=== PATIENT | male | born 1975 | race African-American/Black ===

== ENCOUNTER 2017-06-14 00:28 | Emergency (ER) | payer BC, OTHER ==
[~2017-06-14] VITALS: Ht 170.2 cm; Wt 81.7 kg
[~2017-06-14 00:28] MED LIST: PREDNISONE 20 M20 MG PO
[2017-06-14] MEDS ORDERED: NAPROSYN500 MG PO (01:59)
[2017-06-14 02:16] VITALS: BP 131/89
== END 2017-06-14 02:17 | disposition home or self-care (01) ==
LOC: ER 00:28
DX: S63.612A Unspecified sprain of right middle finger, initial encounter (principal); F17.210 Nicotine dependence, cigarettes, uncomplicated; W23.0XXA Caught, crushed, jammed, or pinched between moving objects, initial encounter; Y93.89 Activity, other specified; Y92.89 Other specified places as the place of occurrence of the external cause; Y99.8 Other external cause status

== ENCOUNTER 2018-03-06 17:40 | Emergency (ER) | payer BC, OTHER ==
[~2018-03-06] VITALS: Ht 170.2 cm; Wt 90.7 kg
[~2018-03-06 17:40] MED LIST changes: +NAPROSYN500 MG PO
[2018-03-06 17:49] VITALS: BP 122/73
[2018-03-06] MEDS ORDERED: MOBIC7.5 MG PO (17:58)
== END 2018-03-06 18:10 | disposition home or self-care (01) ==
LOC: ER 17:40
DX: M70.22 Olecranon bursitis, left elbow (principal); Y93.89 Activity, other specified

== ENCOUNTER 2018-10-25 10:01 | Emergency (ER) | payer BC, OTHER ==
[~2018-10-25] VITALS: Ht 170.2 cm; Wt 81.7 kg
[~2018-10-25 10:01] MED LIST changes: +MOBIC7.5 MG PO
[2018-10-25 10:32] LABS: ABSOLUTE NEUTROPHILS 11.8 thou/uL (1.4-8.2); BASOPHILS 0.5 % (0.0-2.0); EOSINOPHILS 0.5 % (0.0-3.0); HEMATOCRIT 39.4 % (42.0-52.0); HEMOGLOBIN 13.2 gm/dL (14.0-18.0); LYMPHOCYTES 5.7 % (24.0-44.0); MCH 29.9 pg (26.0-34.0); MCHC 33.4 g/dL (28.0-37.0); MCV 89.6 fL (80.0-100.0); MONOCYTES 4.8 % (1.0-8.0); PLATELET COUNT 206 thou/uL (150-400); POLYS 88.5 % (36.0-66.0); RBC 4.39 mil/uL (4.50-6.00); RDW 12.1 % (10.5-14.5); WBC 13.4 thou/uL (4.0-11.0)
[2018-10-25 10:38] LABS: POTASSIUM 3.7 mmol/L (3.5-5.1)
[2018-10-25 10:44] LABS: ALBUMIN 4.3 g/dL (3.4-5.0); TOTAL BILIRUBIN 1.1 mg/dL (<0.1-1.0); TOTAL PROTEIN 8.3 g/dL (6.4-8.2)
[2018-10-25] MEDS ORDERED: PHENERGAN 25 MG25 M1 PO (12:00)
[2018-10-25 12:18] VITALS: BP 131/68
== END 2018-10-25 12:19 | disposition home or self-care (01) ==
LOC: ER 10:01
PROVIDERS: Physician Assistant
DX: R11.2 Nausea with vomiting, unspecified (principal); R19.7 Diarrhea, unspecified; K42.9 Umbilical hernia without obstruction or gangrene; R10.13 Epigastric pain; F17.210 Nicotine dependence, cigarettes, uncomplicated; Z88.6 Allergy status to analgesic agent

== ENCOUNTER 2020-06-19 23:11 | Emergency (ER) | payer BC, OTHER ==
[~2020-06-19] VITALS: Ht 170.2 cm; Wt 81.7 kg
[~2020-06-19 23:11] MED LIST changes: +PHENERGAN 25 MG25 M1 PO
[2020-06-20 01:08] VITALS: BP 161/92
== END 2020-06-20 01:08 | disposition home or self-care (01) ==
LOC: ER 23:11
DX: S05.02XA Injury of conjunctiva and corneal abrasion without foreign body, left eye, initial encounter (principal); F17.210 Nicotine dependence, cigarettes, uncomplicated; Z88.6 Allergy status to analgesic agent; W22.8XXA Striking against or struck by other objects, initial encounter; Y93.89 Activity, other specified; Y92.89 Other specified places as the place of occurrence of the external cause; Y99.8 Other external cause status

== ENCOUNTER 2021-07-06 07:02 | Emergency (ER) | payer OTHER ==
[~2021-07-06] VITALS: Ht 170.2 cm; Wt 81.7 kg
[2021-07-06 07:22] LABS: URINE BLOOD TRACE (Negative); URINE CLARITY CLEAR; URINE COLOR YELLOW; URINE GLUCOSE-RANDOM* NEGATIVE (Negative); URINE KETONES TRACE (Negative); URINE LEUKOCYTES-REFLEX NEGATIVE (Negative); URINE NITRITE-REFLEX NEGATIVE (Negative); URINE PROTEIN (DIPSTICK) 1+ (Negative); URINE SPECIFIC GRAVITY 1.025 (1.005-1.035)
[2021-07-06 07:24] LABS: ICTOTEST (BILI CONFIRMATORY) Negative (Negative); URINE BILIRUBIN NEGATIVE (Negative)
[2021-07-06 07:48] LABS: CASTS None Seen /LPF (None Seen); CRYSTALS None Seen /LPF (None Seen); MUCUS 4-6 Moderate strn/LPF (None Seen); SQUAMOUS None Seen /LPF (0-3); URINE WBC-REFLEX 0-5 Rare /HPF (0-5)
[2021-07-06 07:49] LABS: BACTERIA-REFLEX 1-9 Few /HPF (None Seen); URINE RBC 1-2 Rare /HPF (NONE SEEN)
[2021-07-06 07:55] LABS: ABSOLUTE NEUTROPHILS 3.5 thou/uL (1.4-8.2); BASOPHILS 0.4 % (0.0-2.0); EOSINOPHILS 0.6 % (0.0-3.0); HEMATOCRIT 43.6 % (42.0-52.0); HEMOGLOBIN 14.6 gm/dL (14.0-18.0); LYMPHOCYTES 34.4 % (24.0-44.0); MCH 30.8 pg (26.0-34.0); MCHC 33.5 g/dL (28.0-37.0); MCV 92.1 fL (80.0-100.0); MONOCYTES 13.2 % (1.0-8.0); PLATELET COUNT 228 thou/uL (150-400); POLYS 51.4 % (36.0-66.0); RBC 4.74 mil/uL (4.50-6.00); RDW 11.9 % (10.5-14.5); WBC 6.9 thou/uL (4.0-11.0)
[2021-07-06 08:03] LABS: ALBUMIN 3.8 g/dL (3.4-5.0); DIRECT BILIRUBIN 0.4 mg/dL (<0.1-0.2); TOTAL BILIRUBIN 2.5 mg/dL (0.2-1.0); TOTAL PROTEIN 7.5 g/dL (6.4-8.2)
[2021-07-06 08:04] LABS: ALBUMIN 3.8 g/dL (3.4-5.0); CALCIUM 9.3 mg/dL (8.5-10.1); CREATININE 1.3 mg/dL (0.7-1.3); TOTAL BILIRUBIN 2.5 mg/dL (0.2-1.0); TOTAL PROTEIN 7.7 g/dL (6.4-8.2)
[2021-07-06 09:26] VITALS: BP 164/109
== END 2021-07-06 09:26 | disposition home or self-care (01) ==
LOC: ER 07:02
PROVIDERS: Student in an Organized Health Care Education/Training Program
DX: K59.00 Constipation, unspecified (principal); R10.11 Right upper quadrant pain; F17.210 Nicotine dependence, cigarettes, uncomplicated; Z88.6 Allergy status to analgesic agent